=== PATIENT | male | born 1985 | race Caucasian/White ===

== ENCOUNTER 2018-09-17 15:42 | Emergency (ER) | payer SELFPAY ==
[2018-09-17] MEDS: HYDROCODONE/APAP (5/325) TAB PO (19:16)
[2018-09-17] MEDS: morphine 4 MG/ML VIAL IV (19:16)
[2018-09-17] MEDS: ONDANSETRON 4 MG INJ IV (19:16)
[2018-09-17 19:36] LABS: URINE BLOOD (Dip) POC Trace-intact (NEGATIVE); URINE GLUCOSE (Dip) POC Negative (NEGATIVE); URINE KETONES (Dip) POC Negative (NEGATIVE); URINE LEUKOCYTE EST (Dip) POC Negative (NEGATIVE); URINE NITRITE (Dip) POC Negative (NEGATIVE); URINE TOTAL PROTEIN POC Negative (NEGATIVE)
[2018-09-17 19:40] LABS: ADD MAN DIFF? NO
[2018-09-17 19:46] LABS: WHITE BLOOD COUNT 7.7 10^3/ul (4.8-10.8)
[2018-09-17 19:46] LABS: BASOPHILS % 0.3 % (0.0-2.0); EOSINOPHILS # 0.1 10^3/ul (0.0-0.5); EOSINOPHILS % 1.7 % (0.0-7.0); HEMATOCRIT 44.5 % (42.0-52.0); LYMPHOCYTES # 1.8 10^3/ul (0.8-2.9); MEAN CORPUSCULAR HEMOGLOBIN 29.1 pg (29.0-33.0); MEAN CORPUSCULAR HGB CONC 33.7 g/dl (32.0-37.0); MEAN CORPUSCULAR VOLUME 86.4 fl (82.0-101.0); MEAN PLATELET VOLUME 9.3 fl (7.4-10.4); MONOCYTE # 0.7 10^3/ul (0.3-0.9); MONOCYTES % 8.7 % (0.0-11.0); PLATELET COUNT 197 10^3/UL (140-415); RED BLOOD COUNT 5.15 10^6/ul (4.70-6.10); RED CELL DISTRIBUTION WIDTH 12.8 % (11.5-14.5)
[2018-09-17 20:01] LABS: ADD UMIC NO; UR ASCORBIC ACID NEGATIVE (NEGATIVE); UR BILIRUBIN (Dip) NEGATIVE (NEGATIVE); UR BLOOD (Dip) NEGATIVE (NEGATIVE); UR CLARITY CLEAR (CLEAR); UR COLOR YELLOW (YELLOW); UR GLUCOSE (Dip) NEGATIVE (NEGATIVE); UR KETONES (Dip) NEGATIVE (NEGATIVE); UR LEUKOCYTE ESTERASE (Dip) NEGATIVE Leu/ul (NEGATIVE); UR NITRITE (Dip) NEGATIVE (NEGATIVE); UR SPECIFIC GRAVITY (Dip) 1.019 (1.003-1.030); UR TOTAL PROTEIN (Dip) NEGATIVE (NEGATIVE); UR UROBILINOGEN (Dip) NEGATIVE (NEGATIVE)
[2018-09-17 20:08] LABS: ALANINE AMINOTRANSFERASE 35 IU/L (13-69); ALBUMIN 4.8 g/dl (3.3-4.9); ALBUMIN/GLOBULIN RATIO 1.29; ALKALINE PHOSPHATASE 82 IU/L (42-121); ANION GAP 11 (5-13); ASPARTATE AMINO TRANSFERASE 30 IU/L (15-46); BILIRUBIN,INDIRECT 0.1 mg/dl (0-1.1); BILIRUBIN,TOTAL 0.1 mg/dl (0.2-1.3); BLOOD UREA NITROGEN 14 mg/dl (7-20); CALCIUM 9.4 mg/dl (8.4-10.2); CARBON DIOXIDE 28 mmol/L (21-31); CHLORIDE 102 mmol/L (97-110); CREATININE 0.93 mg/dl (0.61-1.24); Estimated GFR > 60 mL/min (>60); GLUCOSE 101 mg/dl (70-220); LIPASE 59 U/L (23-300); POTASSIUM 4.2 mmol/L (3.5-5.1); SODIUM 141 mmol/L (135-144); TOTAL PROTEIN 8.5 g/dl (6.1-8.1)
[2018-09-17] MEDS: SOD CHLORIDE 0.9% 100 ML (20:41)
[2018-09-17] MEDS: IOHEXOL 300MG/ML 150 ML BTL (20:42)
[2018-09-17] MEDS: KETOROLAC 30 MG INJ IV (22:13)
== END 2018-09-17 22:32 | disposition home or self-care (01) ==
LOC: FTE 15:42
DX: S39.92XA Unspecified injury of lower back, initial encounter (principal); F17.210 Nicotine dependence, cigarettes, uncomplicated; W11.XXXA Fall on and from ladder, initial encounter; Y92.9 Unspecified place or not applicable
CPT/HCPCS: 36415; 74177; 80053; 81003; 83690; 85025; 96374; 96375; 99285-25